=== PATIENT | female | born 2005 | race Caucasian/White ===

== ENCOUNTER 2024-06-14 06:51 | Outpatient (REF) | payer OTHER, SELFPAY ==
--- NOTE | ~2024-06-14 | US_ITS ---
EXAMINATION: US PELVIS CLINICAL INFORMATION: Right lower quadrant pain every month. COMPARISON: None available. TECHNIQUE: Ultrasound of the pelvis is performed using both transabdominal and transvaginal transducers along with Doppler. Transvaginal imaging is performed due to inadequate visualization transabdominally. FINDINGS: Uterus: The uterus is anteverted and measures 6.7 x 3.0 x 5.1 cm. The double wall endometrial thickness is 1.4 mm. The uterus is smooth in contour and has normal myometrial echogenicity. No visible fibroid. Adnexa: Both ovaries are visualized. There is normal color flow to the adnexa. There is no ovarian torsion. There is a small amount of free pelvic fluid. Right ovary measures 6.6 x 4.4 x 5.2 cm for a volume of 57 mL which includes a large 4.2 x 2.9 x 4.2 cm cyst with some organized clot within it. Left ovary measures 3.4 x 1.9 x 1.5 cm for a volume of 4.9 mL. US/US pelvic and transvaginal IMPRESSION: Large right ovarian cyst with some internal hemorrhage with some organized clot. No evidence of torsion. Follow-up exam in 1-3 months is recommended. Electronically signed by: Vik Morales MD 06/14/2024 08:19 PM EDT
== END 2024-06-14 06:52 | disposition home or self-care (01) ==
LOC: HO.UMASIMG 06:51
PROVIDERS: Visit Provider Nurse Practitioner Women's Health
DX: N92.6 Irregular menstruation, unspecified (principal)
CPT/HCPCS: 76830; 76856

== ENCOUNTER 2024-07-29 08:45 | Outpatient (REF) | payer OTHER, SELFPAY ==
--- NOTE | ~2024-07-29 | US_ITS ---
EXAMINATION: US PELVIS CLINICAL INFORMATION: Follow-up right ovarian cyst. LMP 2 weeks ago. COMPARISON: June 14, 2024 TECHNIQUE: Ultrasound of the pelvis is performed using both transabdominal and transvaginal transducers along with Doppler. Transvaginal imaging is performed due to inadequate visualization transabdominally. FINDINGS: Uterus: The uterus is anteverted and measures 6.7 x 2.9 x 3.6 cm. The double wall endometrial thickness is 8 mm. The uterus is smooth in contour and has normal myometrial echogenicity. No visible fibroid. Adnexa: Both ovaries are visualized. There is normal color flow to the adnexa. Small free fluid in the pelvis. Right ovary measures 3.6 x 2.1 x 2.6 cm. Left ovary measures 2.8 x 1.7 x 1.8 cm. US/US pelvic and transvaginal IMPRESSION: Unremarkable pelvic ultrasound. Electronically signed by: Ascencion Nichole MD 07/29/2024 04:39 PM EDT
== END 2024-07-29 08:46 | disposition home or self-care (01) ==
LOC: HO.UMASIMG 08:45
PROVIDERS: Visit Provider Nurse Practitioner Women's Health
DX: N83.201 Unspecified ovarian cyst, right side (principal)
CPT/HCPCS: 76830; 76856